=== PATIENT | male | born 1980 | race Caucasian/White ===

== ENCOUNTER 2024-11-30 12:30 | Emergency (ER) | payer OTHER ==
[~2024-11-30] VITALS: Ht 185.4 cm; Wt 74.5 kg
[2024-11-30] MEDS: TETANUS/DIPHTHERIA TOX ADULT 0.5 ML SYR IM ONE (13:01)
[2024-11-30] MEDS: IBUPROFEN 600 MG TAB PO STA (13:01)
[2024-11-30 15:20] VITALS: PULSE 63; RESP 20; TEMP 99; O2SAT 98
[2024-11-30] MEDS ORDERED: LIDOCAINE HCL 2% LOCAL INJ 5 ML SDV VIAL INJ ONE (16:25)
[2024-11-30] MEDS: CEFTRIAXONE 2 GM in SODIUM CHLORIDE 0.9% 100 ML IV ONE (16:31)
[2024-11-30] MEDS ORDERED: KEFLEX125 MG/5 M PO (17:03)
== END 2024-11-30 17:13 | disposition home or self-care (01) ==
LOC: FSED 12:36
DX: S62.666B Nondisplaced fracture of distal phalanx of right little finger, initial encounter for open fracture (principal); W23.2XXA Caught, crushed, jammed or pinched between a moving and stationary object, initial encounter; Y99.0 Civilian activity done for income or pay; F17.210 Nicotine dependence, cigarettes, uncomplicated
CPT/HCPCS: 12001; 73140; 90471; 90714; 99284; J0696; J2003; J7050